=== PATIENT | male | born 1965 | race Caucasian/White ===

== ENCOUNTER → 2017-10-02 | Outpatient (CLI) | payer OTHER ==
--- NOTE | 2017-10-02 15:54 | TR ---
Date Performed: 10/02/2017 Time Performed: 10:49:30 DOCTOR: Catherine Hollis DRUG LIST: CLINICAL HISTORY: REASON FOR TEST: REASON FOR ENDING: OBSERVATION: CONCLUSION: JOSEPH PROTOCOL. NO CP. TEST STOPPED AFTER EXCEEDING GOAL HR SECONDARY TO SOB AND LE G FATIGUE.Maximum UZ=866 % Max HR Achieved=92.0% Maximum EI=877/84 Total Exercise Time=10:01 COMMENTS:
== END ==
LOC: HCAV 10:25
PROVIDERS: ATTEND Family Medicine
DX: R07.9 Chest pain, unspecified (principal)
CPT/HCPCS: 93017